=== PATIENT | male | born 1985 | race African-American/Black ===

== ENCOUNTER → 2016-08-27 | Outpatient (CLI) | payer OTHER ==
[~2016-08-27] MED LIST: ZYRT10CA PO
--- NOTE | 2016-08-27 23:23 | REP ---
Clinical: Abdominal pain and rectal bleeding. Findings: Lung bases are clear. Visualized heart and pericardium normal. Liver, spleen, pancreas, gallbladder, bilateral adrenal glands and kidneys are normal. The enteric system is grossly unremarkable. Moderate amount of retained fecal material within the ascending and sigmoid colon noted. No evidence for bowel obstruction or acute inflammatory process. Pelvis demonstrates normal bladder and age appropriate prostate/seminal vesicles. Small fat containing right inguinal hernia noted. No ascites. No adenopathy. No free air. Surrounding musculoskeletal structures are intact. Impression: Possible moderate fecal stasis primarily noted in the ascending and sigmoid colon. Otherwise essentially normal noncontrast CT of the abdomen and pelvis. Signed by Ryan Wilson MD 08/27/2016 11:15 P
== END ==
LOC: M RAD 09:09
PROVIDERS: ATTEND Physician Assistant
DX: R10.9 Unspecified abdominal pain (principal); K62.5 Hemorrhage of anus and rectum

== ENCOUNTER → 2016-09-14 | Outpatient (CLI) | payer OTHER ==
[~2016-09-14] MED LIST changes: +GASTROGRAFIN SOLUTION 30ML (Q9963) As Ordered ONE
--- NOTE | 2016-09-14 11:53 | REP ---
CT of the abdomen and pelvis with bowel contrast but without IV contrast: Comparison is 08/27/2016. The visualized lung garcia are unremarkable. The unenhanced hepatic parenchyma is homogeneous. The unenhanced gallbladder, pancreas and spleen are unremarkable and unchanged. The right and left adrenals are visualized and are unremarkable. The unenhanced [id number] kidneys are unremarkable and unchanged. The abdominal aorta is unremarkable. There is no retroperitoneal adenopathy or mass. There is no bowel distension or obstruction. The ingested oral contrast has reached the rectum at the time of scanning without evidence of obstruction. However, there is an unusual bowel pattern. I note the patient has a history of colostomy as an . I am unable to identify the descending colon or transverse colon. The rectosigmoid colon appears to be anastomosed to the ascending colon. I am unable to identify the cecum and ileocecal valve with assurance but these may be in the abdominal right upper quadrant. These findings should be correlated with the patient's surgical history. The bladder is unremarkable. There is no adenopathy or ascites. Impression: No evidence of bowel obstruction. There is an unusual bowel pattern, likely postsurgical. I suspect there is anastomosis of the rectosigmoid colon to the ascending colon. Correlation with the surgical history would be worthwhile. Signed by Catracho Shultz MD 09/14/2016 11:45 A
== END ==
LOC: M RAD 09:26
PROVIDERS: ATTEND Internal Medicine Gastroenterology
DX: R19.7 Diarrhea, unspecified (principal)

== ENCOUNTER → 2016-09-30 | Outpatient (REF) | payer OTHER ==
[~2016-09-30] MED LIST changes: -GASTROGRAFIN SOLUTION 30ML (Q9963) As Ordered ONE
== END ==
LOC: M LAB REF 15:05
PROVIDERS: ATTEND Internal Medicine Gastroenterology
DX: K52.89 Other specified noninfective gastroenteritis and colitis (principal); R19.7 Diarrhea, unspecified

== ENCOUNTER 2016-10-02 10:34 | Outpatient (CLI) | payer OTHER ==
[~2016-10-02] VITALS: Ht 188 cm; Wt 95.3 kg
[~2016-10-02 10:34] MED LIST changes: +LIDOCAINE 2% INJ 100 MG/5 ML SDV (FOR ANES.) As Ordered ONE; +PROPOFOL 200 MG/20 ML VIAL As Ordered ONE
[2016-10-02] MEDS ORDERED: NS 1,000 ML IV ONE (11:00)
--- NOTE | 2016-10-02 13:19 | ROOR ---
Patient Name: Larry Yost Procedure Date: 10/02/2016 12:33 PM Date of : 1985 Age: 31 Room: [facility] Gender: Male Note Status: Finalized Procedure: Upper GI endoscopy Indications: Dysphagia Providers: Shaun Flores MD Referring MD: DINA HERNANDEZ MD Requesting Provider: Medicines: Monitored Anesthesia Care Complications: No immediate complications. Procedure: Pre-Anesthesia Assessment: - Prior to the procedure, a History and Physical was performed, and patient medications and allergies were reviewed. The patient is competent. The risks and benefits of the procedure and the sedation options and risks were discussed with the patient. All questions were answered and informed consent was obtained. Patient identification and proposed procedure were verified by the physician, the nurse and the hammer smith in the procedure room. Mental Status Examination: alert and oriented. Airway Examination: normal oropharyngeal airway and neck mobility. Respiratory Examination: clear to auscultation. CV Examination: normal. Prophylactic Antibiotics: The patient does not require prophylactic antibiotics. Prior Anticoagulants: The patient has taken no previous anticoagulant or antiplatelet agents. ASA Grade Assessment: II - A patient with mild systemic disease. After reviewing the risks and benefits, the patient was deemed in satisfactory condition to undergo the procedure. The anesthesia plan was to use monitored anesthesia care (MAC). Immediately prior to administration of medications, the patient was re-assessed for adequacy to receive sedatives. The heart rate, respiratory rate, oxygen saturations, blood pressure, adequacy of pulmonary ventilation, and response to care were monitored throughout the procedure. The physical status of the patient was re-assessed after the procedure. The Endoscope was introduced through the mouth, and advanced to the second part of duodenum. The upper GI endoscopy was accomplished without difficulty. The patient tolerated the procedure well. Findings: The examined esophagus was normal. Biopsies were obtained from the proximal and distal esophagus with cold forceps for histology of suspected eosinophilic esophagitis. Verification of patient identification for the specimen was done by the physician and nurse using the patient's name, date and medical record number. Estimated blood loss was minimal. Diffuse moderately erythematous mucosa without bleeding was found in the gastric body. Two biopsies were obtained with cold forceps for histology in the gastric antrum, as well as two biopsies in the gastric body. Evidence of a possible Gastrostomy was found in the gastric body (anterior wall). This was characterized by healthy appearing mucosa. The duodenal bulb and second portion of the duodenum were normal. Impression: - Normal esophagus. Biopsied. - Erythematous mucosa in the gastric body. - A possible Gastrostomy were found, characterized by healthy appearing mucosa. - Normal duodenal bulb and second portion of the duodenum. - Biopsies performed in the gastric antrum and in the gastric body. Recommendation: - Patient has a contact number available for emergencies. The signs and symptoms of potential delayed complications were discussed with the patient. Return to normal activities tomorrow. Written discharge instructions were provided to the patient. - Resume previous diet. - Continue present medications. - Await pathology results. - Telephone GI clinic for pathology results in 1 week. - Return to GI clinic on 2016 at 10:00 AM. Shaun Flores MD Shaun Flores MD 10/02/2016 1:19:11 PM This report has been signed electronically. Number of Addenda: 0 Note Initiated On: 10/02/2016 12:33 PM Estimated Blood Loss: Estimated blood loss: none.
[2016-10-02 13:30] VITALS: BP 150/83
--- NOTE | 2016-10-02 13:39 | ROOR ---
Patient Name: Larry Yost Procedure Date: 10/02/2016 12:34 PM Date of : 1985 Age: 31 Room: [facility] Gender: Male Note Status: Finalized Procedure: Colonoscopy Indications: Hematochezia Providers: Shaun Flores MD Referring MD: DINA HERNANDEZ MD Requesting Provider: Medicines: Monitored Anesthesia Care Complications: No immediate complications. Procedure: Pre-Anesthesia Assessment: - Prior to the procedure, a History and Physical was performed, and patient medications and allergies were reviewed. The patient is competent. The risks and benefits of the procedure and the sedation options and risks were discussed with the patient. All questions were answered and informed consent was obtained. Patient identification and proposed procedure were verified by the physician, the nurse and the hotel security officer in the procedure room. Mental Status Examination: alert and oriented. Airway Examination: normal oropharyngeal airway and neck mobility. Respiratory Examination: clear to auscultation. CV Examination: normal. Prophylactic Antibiotics: The patient does not require prophylactic antibiotics. Prior Anticoagulants: The patient has taken no previous anticoagulant or antiplatelet agents. ASA Grade Assessment: II - A patient with mild systemic disease. After reviewing the risks and benefits, the patient was deemed in satisfactory condition to undergo the procedure. The anesthesia plan was to use monitored anesthesia care (MAC). Immediately prior to administration of medications, the patient was re-assessed for adequacy to receive sedatives. The heart rate, respiratory rate, oxygen saturations, blood pressure, adequacy of pulmonary ventilation, and response to care were monitored throughout the procedure. The physical status of the patient was re-assessed after the procedure. The Colonoscope was introduced through the anus and advanced to the terminal ileum, with identification of the appendiceal orifice and IC valve. The colonoscopy was performed without difficulty. The patient tolerated the procedure well. The quality of the bowel preparation was good. The terminal ileum, ileocecal valve, appendiceal orifice, and rectum were photographed. Scope insertion time was 1 minute. Scope withdrawal time was 6 minutes. The total duration of the procedure was 7 minutes. Findings: The perianal and digital rectal examinations were normal. The terminal ileum appeared normal. There was evidence of a prior functional end-to-end colo-colonic anastomosis in the sigmoid colon. This was patent and was characterized by healthy appearing mucosa. The anastomosis was traversed. Normal mucosa was found in the entire colon. Biopsies for histology were taken with a cold forceps from the right colon and left colon for evaluation of microscopic colitis. Verification of patient identification for the specimen was done by the physician and nurse using the patient's name, date and medical record number. Estimated blood loss was minimal. Non-bleeding external and internal hemorrhoids were found during retroflexion. The hemorrhoids were large. Impression: - The examined portion of the ileum was normal. - Patent functional end-to-end colo-colonic anastomosis, characterized by healthy appearing mucosa. - Normal mucosa in the entire examined colon. Biopsied. - Non-bleeding external and internal hemorrhoids. Recommendation: - Patient has a contact number available for emergencies. The signs and symptoms of potential delayed complications were discussed with the patient. Return to normal activities tomorrow. Written discharge instructions were provided to the patient. - Resume previous diet. - Continue present medications. - Await pathology results. - Repeat colonoscopy at age 48 for screening purposes. - Telephone GI clinic for pathology results in 1 week. - Return to GI clinic On October 17 at 10:00 AM. - Preparation H ointment: Apply externally daily for 7 days. Shaun Flores MD Shaun Flores MD 10/02/2016 1:38:58 PM This report has been signed electronically. Number of Addenda: 0 Note Initiated On: 10/02/2016 12:34 PM Estimated Blood Loss: Estimated blood loss was minimal.
== END 2016-10-02 13:43 | disposition home or self-care (01) ==
LOC: M OPP 10:34
PROVIDERS: ATTEND Internal Medicine Gastroenterology
DX: Z98.0 Intestinal bypass and anastomosis status (principal); R13.10 Dysphagia, unspecified; K29.00 Acute gastritis without bleeding; K29.50 Unspecified chronic gastritis without bleeding; A08.4 Viral intestinal infection, unspecified; B96.81 Helicobacter pylori [H. pylori] as the cause of diseases classified elsewhere

== ENCOUNTER → 2017-07-25 | Outpatient (REF) | payer OTHER ==
[2017-07-31 14:16] LABS: CALPROTECTIN STOOL 17 ug/g (0-120); FATS NEUTRAL Normal (.); FATS TOTAL Normal (.); PANCREATIC ELASTASE STOOL >500 (>200)
[2017-07-31 14:16] LABS: H PYLORI STOOL ANTIGEN Negative (Negative)
== END ==
LOC: M LAB REF 13:30
DX: Z13.9 Encounter for screening, unspecified (principal); B96.81 Helicobacter pylori [H. pylori] as the cause of diseases classified elsewhere
CPT/HCPCS: 82705

== ENCOUNTER → 2018-02-27 | Outpatient (CLI) | payer OTHER ==
[~2018-02-27] MED LIST changes: +COLA100C5 PO; +CVS8.6TA5 PO; +IBUP80TA PO; -LIDOCAINE 2% INJ 100 MG/5 ML SDV (FOR ANES.) As Ordered ONE; +MIRA3350 PO; -PROPOFOL 200 MG/20 ML VIAL As Ordered ONE
[2018-02-27 11:36] LABS: BASO % 0.8 % (0.0-1.0); EOS # 0.1 10^3/uL (0.0-0.50); EOS % 1.5 % (0.0-3.0); HEMATOCRIT 42.9 % (42.0-52.0); HEMOGLOBIN 14.4 g/dl (13.5-17.5); LYMPH # 1.3 10^3/uL (1.5-4.5); LYMPH % 24.2 % (24.0-44.0); MEAN CORPUSCULAR HEMOGLOBIN 29.2 pg (27.0-33.0); MEAN CORPUSCULAR HGB CONC 33.6 g/dl (32.0-36.5); MONO # 0.4 10^3/uL (0.0-0.8); MONO % 8.3 % (0.0-5.0); NEUTROPHILS # 3.4 10^3/uL (1.8-7.7); NEUTROPHILS % 64.6 % (36.0-66.0); PLATELET COUNT, AUTOMATED 217 10^3/uL (150-450); RED BLOOD COUNT 4.93 10^6/uL (4.30-6.10); WHITE BLOOD COUNT 5.3 10^3/uL (4.0-10.0)
[2018-02-27 12:18] LABS: FOLATE 19.9 NG/ML
== END ==
LOC: M LAB 10:44
PROVIDERS: ATTEND Internal Medicine Gastroenterology
DX: R10.13 Epigastric pain (principal)

== ENCOUNTER → 2018-04-15 | Outpatient (CLI) | payer OTHER ==
[~2018-04-15] MED LIST changes: +E-Z-GAS II EFFERVESCENT PACKET (SODIUM BICARB./CITRIC ACID/SIMETHICONE) As Ordered ONE; +E-Z-HD 98% w/w 340GM SUSP BTL As Ordered ONE; +E-Z-PAQUE 96% w/w SUSP 176GM BTL As Ordered ONE
--- NOTE | 2018-04-15 19:32 | REP ---
Esophagram The procedure was performed under the direct supervision of Dr. Villanueva. The images were reviewed with Dr. Villanueva. A single view PA chest x-ray is submitted as a loan expeditor film. The superior mediastinal structures are midline. The heart size is within normal limits. The lungs are clear. Liquid barium and gas producing granules were given in the erect position as well as liquid barium in the prone oblique positions in order to perform a double contrast esophagram examination. The oral and pharyngeal stages of deglutition are unremarkable. Esophageal transport is prompt and efficient and there is no esophagitis, stricture, mucosal ring or hiatal hernia. There is gastroesophageal reflux demonstrated to the level of the thoracic inlet. Impression: There is gastroesophageal reflux demonstrated to the level of the thoracic inlet. Otherwise, unremarkable double contrast esophagram examination. In 0.5 minutes of fluoro time was utilized for this procedure. Reviewed by DEMETRIO Nunez 04/15/2018 04:27 P Electronically Signed by Abram Villanueva MD 04/15/2018 07:24 P
== END ==
LOC: M RAD 10:02
PROVIDERS: ATTEND Student in an Organized Health Care Education/Training Program
DX: R13.19 Other dysphagia (principal); K21.9 Gastro-esophageal reflux disease without esophagitis

== ENCOUNTER 2018-04-16 10:57 | Emergency (ER) | payer OTHER ==
[~2018-04-16] VITALS: Ht 188 cm; Wt 101.8 kg
[~2018-04-16 10:57] MED LIST changes: -E-Z-GAS II EFFERVESCENT PACKET (SODIUM BICARB./CITRIC ACID/SIMETHICONE) As Ordered ONE; -E-Z-HD 98% w/w 340GM SUSP BTL As Ordered ONE; -E-Z-PAQUE 96% w/w SUSP 176GM BTL As Ordered ONE
[2018-04-16 11:31] LABS: BASO % 0.6 % (0.0-1.0); EOS # 0.1 10^3/uL (0.0-0.50); EOS % 0.9 % (0.0-3.0); HEMATOCRIT 43.5 % (42.0-52.0); HEMOGLOBIN 14.7 g/dl (13.5-17.5); LYMPH # 1.7 10^3/uL (1.5-4.5); LYMPH % 25.6 % (24.0-44.0); MEAN CORPUSCULAR HEMOGLOBIN 29.6 pg (27.0-33.0); MEAN CORPUSCULAR HGB CONC 33.8 g/dl (32.0-36.5); MEAN CORPUSCULAR VOLUME 87.5 fl (80.0-96.0); MONO # 0.7 10^3/uL (0.0-0.8); MONO % 9.7 % (0.0-5.0); NEUTROPHILS # 4.2 10^3/uL (1.8-7.7); NEUTROPHILS % 62.6 % (36.0-66.0); PLATELET COUNT, AUTOMATED 216 10^3/uL (150-450); RED BLOOD COUNT 4.97 10^6/uL (4.30-6.10); WHITE BLOOD COUNT 6.7 10^3/uL (4.0-10.0)
--- NOTE | 2018-04-16 11:34 | REP ---
Clinical: Acute chest pain . Comparison: None. Findings: The mediastinum and cardiac silhouette are stable and within normal limits for portable technique. The lung garcia are clear without acute consolidation, effusion, or pneumothorax. Skeletal structures are intact. Impression: No acute cardiopulmonary process appreciated. Electronically Signed by Ryan Wilson MD 04/16/2018 11:27 A
[2018-04-16 11:53] LABS: BLOOD UREA NITROGEN 15 MG/DL (7-18); CALCIUM LEVEL 8.8 MG/DL (8.5-10.1); CARBON DIOXIDE LEVEL 29 MEQ/L (21-32); CHLORIDE LEVEL 104 MEQ/L (98-107); CPK CREATINE PHOSPHOKINASE 565 U/L (39-308); CREATININE FOR GFR 1.34 MG/DL (0.70-1.30); GLOMERULAR FILTRATION RATE > 60.0 (>60); GLUCOSE, FASTING 105 MG/DL (70-100); MB/CK RELATIVE INDEX 0.46 (< OR =4); SODIUM LEVEL 139 MEQ/L (136-145); TROPONIN I < 0.02 NG/ML (< 0.10)
[2018-04-16] MEDS ORDERED: ACETAMINOPHEN 325 MG TAB PO ONE (16:00)
[2018-04-16 17:43] LABS: CPK CREATINE PHOSPHOKINASE 487 U/L (39-308); MB/CK RELATIVE INDEX 0.41 (< OR =4); TROPONIN I < 0.02 NG/ML (< 0.10)
[2018-04-16 18:11] VITALS: BP 158/74
--- NOTE | 2018-04-16 21:01 | ECGEPIP ---
Stationary ECG Study [facility] - ED Test Date: 2018-04-16 Pat Name: BEE CHILDRESS Department: Room: - Gender: M Chief Console Operator: : 1985 Requested By: Anthony Yuen Order Number: [id number] Reading MD: Kim Esparza Measurements Intervals [place] Rate: 58 P: 40 NV: 243 QRS: 81 QRSD: 95 T: 33 QT: 371 QTc: 366 Interpretive Statements SINUS BRADYCARDIA WITH FIRST DEGREE AV BLOCK DELAYED R PROGRESSION NO PRIOR FOR COMPARISON Electronically Signed On 04-16-2018 21:01:23 EST by Kim Esparza
--- NOTE | 2018-04-16 21:07 | ECGEPIP ---
Stationary ECG Study [facility] - ED Test Date: 2018-04-16 Pat Name: BEE CHILDRESS Department: Room: - Gender: M Critical Care Physician: WENDY : 1985 Requested By: LANNY BUI Order Number: [id number] Reading MD: Kim Esparza Measurements Intervals [place] Rate: 56 P: 55 NE: 218 QRS: 51 QRSD: 98 T: 38 QT: 386 QTc: 374 Interpretive Statements SINUS BRADYCARDIA WITH FIRST DEGREE AV BLOCK POSSIBLE LEFT ATRIAL ENLARGEMENT POSSIBLE ANTERIOR MYOCARDIAL INFARCTION, OF INDETERMINATE AGE SIMILAR 04/16/18 Electronically Signed On 04-16-2018 21:07:19 EST by Kim Esparaz
== END 2018-04-16 18:10 | disposition home or self-care (01) ==
LOC: M ED 10:57 → EDBD 10:57 → M ED 18:10
DX: R07.89 Other chest pain (principal); I10 Essential (primary) hypertension; K21.9 Gastro-esophageal reflux disease without esophagitis; Z82.49 Family history of ischemic heart disease and other diseases of the circulatory system; Z79.899 Other long term (current) drug therapy

== ENCOUNTER → 2018-04-29 | Outpatient (CLI) | payer OTHER ==
--- NOTE | 2018-04-30 17:42 | ECHO ---
DATE OF PROCEDURE: 04/29/2018 Date of : 1985 Age: 33 Gender: Male Height: 74 inches Weight: 224 pounds Body surface area: 2.2 cm squared Outpatient. REFERRING PHYSICIAN: Edis Henderson INDICATION: Hypertension. MEASUREMENTS: 2D measurements: RV: 3.4 cm LV: 4.4 cm Septum: 1.3 cm Posterior wall: 1.3 cm Aortic root: 3.0 cm LA: 3.8 cm LVEF: 70%. Doppler Measurements: AV: 1.4 m/s LVOT: 1.0 m/s LVOT diameter: 2.2 cm MV-E: 88, A: 51, EA ratio: 1.7 Early mitral deceleration time: 218 ms E prime: 8.9, A prime: 8.2, E/E prime ratio: 9 PV: 0.9 m/s Pulmonary artery acceleration time: 148 ms RVSP: 24 mmHg IVC: 1.4 cm COMMENTS: Sinus bradycardia without intraventricular conduction disturbance. M-mode and two-dimensional echocardiography was performed pulsed, continuous wave, color flow and tissue Doppler studies. Mild concentric left ventricle hypertrophy with hyperkinetic wall motion. Left atrium upper limits of normal in size with currently normal Doppler assessment of LV diastolic function and estimated mean left atrial pressure. Normal right heart chamber sizes and motion and estimated pulmonary arterial pressure. Normal appearing and functioning valvular structures. Normal aortic root size. No apparent intracardiac mass or pericardial effusion.
== END ==
LOC: M CARPUL 08:09
PROVIDERS: ATTEND Internal Medicine
DX: I10 Essential (primary) hypertension (principal)